=== PATIENT | male | born 1940 | race Caucasian/White ===

== ENCOUNTER 2020-11-16 17:20 | Emergency (ER) | payer OTHER ==
[~2020-11-16] VITALS: Ht 175.3 cm; Wt 90.7 kg
[2020-11-16 18:04] LABS: BASOPHILS ABSOLUTE AUTO 0.02 K/mm3 (0.00-0.23); BASOPHILS PERCENT AUTO 0 % (0-2); EOSINOPHILS ABSOLUTE AUTO 0.03 K/mm3 (0.00-0.68); EOSINOPHILS PERCENT AUTO 0 % (0-6); Hematocrit 43.4 % (37.0-53.0); Hemoglobin 15.3 g/dL (13.5-17.5); IMMATURE GRAN ABSOLUTE AUTO 0.06 K/mm3 (0.00-0.10); IMMATURE GRAN PERCENT AUTO 1 % (0-1); LYMPHOCYTES ABSOLUTE AUTO 0.68 K/mm3 (0.84-5.20); LYMPHOCYTES PERCENT AUTO 6 % (21-46); MONOCYTES PERCENT AUTO 8 % (4-13); Mean Corpuscular HGB 32.3 pg (26.0-34.0); Mean Corpuscular HGB Conc 35.3 g/dL (31.5-36.5); Mean Corpuscular Volume 92 fL (80-100); Mean Platelet Volume 10.4 fL (9.1-12.4); NEUTROPHILS ABSOLUTE AUTO 9.91 K/mm3 (1.96-9.15); NEUTROPHILS PERCENT AUTO 85 % (41-73); Platelet Count 226 K/mm3 (150-400); RDW Coefficient Variation 12.6 % (11.7-14.2); Red Blood Cell Count 4.74 M/mm3 (4.30-5.90)
[2020-11-16 18:16] LABS: Albumin, Blood 2.7 g/dL (3.4-5.0); Albumin/Globulin Ratio 0.7 (0.8-1.8); Bilirubin, Total 1.5 mg/dL (0.1-1.0); Bun/Creatinine Ratio 19.1 (12.0-20.0); Calcium, Blood 8.4 mg/dL (8.5-10.1); Creatinine, Blood 1.31 mg/dL (0.60-1.20); Potassium, Blood 3.4 mmol/L (3.5-5.5); Total Protein, Blood 6.7 g/dL (6.4-8.2)
== END 2020-11-16 20:09 | disposition home or self-care (01) ==
LOC: ER 17:20
PROVIDERS: Emergency Medicine
DX: U07.1 COVID-19 (principal); I10 Essential (primary) hypertension
CPT/HCPCS: 71045; 80053; 85025; 93005; 93010; 99284-25

== ENCOUNTER 2021-12-20 10:51 | Emergency (ER) | payer OTHER ==
[~2021-12-20] VITALS: Ht 175.3 cm; Wt 97.5 kg
[2021-12-20] MEDS ORDERED: VITAMIN D32000 UNI1 PO (11:14)
[2021-12-20] MEDS ORDERED: HYDROCHLOROTHIA25 MG PO (11:14)
[2021-12-20] MEDS ORDERED: ALLO300 PO (11:15)
[2021-12-20] MEDS ORDERED: AMLO10 PO (11:15)
[2021-12-20] MEDS ORDERED: PARO20 PO (11:15)
[2021-12-20] MEDS ORDERED: HYDHCL25 PO (11:16)
[2021-12-20] MEDS ORDERED: ATOR20 PO (11:16)
[2021-12-20] MEDS ORDERED: METF500 PO (11:17)
[2021-12-20] MEDS ORDERED: PROB500 PO (11:17)
[2021-12-20] MEDS ORDERED: ALBU90OI INH (11:17)
[2021-12-20] MEDS ORDERED: ELIQUIS2.5 MG PO (11:18)
[2021-12-20] MEDS ORDERED: OXYACE7.5T PO (12:39)
== END 2021-12-20 13:31 | disposition home or self-care (01) ==
LOC: ER 10:51
DX: S20.211A Contusion of right front wall of thorax, initial encounter (principal); S70.11XA Contusion of right thigh, initial encounter; V86.49XA Person injured while boarding or alighting from other special all-terrain or other off-road motor vehicle, initial encounter; I10 Essential (primary) hypertension; Z79.899 Other long term (current) drug therapy
CPT/HCPCS: 71046; A9270

== ENCOUNTER 2022-03-27 08:19 | Emergency (ER) | payer OTHER ==
[~2022-03-27] VITALS: Ht 175.3 cm; Wt 97.5 kg
[~2022-03-27 08:19] MED LIST: ALBU90OI INH; ALLO300 PO; AMLO10 PO; ATOR20 PO; ELIQUIS2.5 MG PO; HYDHCL25 PO; HYDROCHLOROTHIA25 MG PO; METF500 PO; OXYACE7.5T PO; PARO20 PO; PROB500 PO; VITAMIN D32000 UNI1 PO
[2022-03-27] MEDS ORDERED: Percocet 7.5-31 EACH PO (10:16)
== END 2022-03-27 10:35 | disposition home or self-care (01) ==
LOC: ER 08:19
DX: S22.081A Stable burst fracture of T11-T12 vertebra, initial encounter for closed fracture (principal); S22.32XA Fracture of one rib, left side, initial encounter for closed fracture; I10 Essential (primary) hypertension; W01.0XXA Fall on same level from slipping, tripping and stumbling without subsequent striking against object, initial encounter; Z79.899 Other long term (current) drug therapy; Z79.84 Long term (current) use of oral hypoglycemic drugs; Z79.01 Long term (current) use of anticoagulants; Z96.653 Presence of artificial knee joint, bilateral
CPT/HCPCS: 72128; 99283-25; A9270

== ENCOUNTER 2022-11-30 15:30 | Observation (INO) | payer OTHER ==
[~2022-11-30] VITALS: Ht 175.3 cm; Wt 100.1 kg
[~2022-11-30 15:30] MED LIST changes: +Percocet 7.5-31 EACH PO
[2022-11-30 17:24] LABS: PCO2 Arterial 38.6 mmHg (35-45); PO2 Arterial 67.7 mmHg (80-100); pH Blood Arterial 7.44 (7.35-7.45)
[2022-11-30 17:26] LABS: Albumin, Blood 3.4 g/dL (3.4-5.0); Albumin/Globulin Ratio 1.1 (0.8-1.8); Bilirubin, Total 1.1 mg/dL (0.1-1.0); Bun/Creatinine Ratio 17.9 (12.0-20.0); Calcium, Blood 9.3 mg/dL (8.5-10.1); Creatinine, Blood 1.95 mg/dL (0.60-1.20); Globulin, Blood 3.2 g/dL (2.2-4.0); Potassium, Blood 3.4 mmol/L (3.5-5.5); Total Protein, Blood 6.6 g/dL (6.4-8.2)
[2022-11-30 17:46] LABS: BASOPHILS ABSOLUTE AUTO 0.04 K/mm3 (0.00-0.23); BASOPHILS PERCENT AUTO 0 % (0-2); EOSINOPHILS ABSOLUTE AUTO 0.11 K/mm3 (0.00-0.68); EOSINOPHILS PERCENT AUTO 1 % (0-6); Hematocrit 47.3 % (37.0-53.0); Hemoglobin 16.7 g/dL (13.5-17.5); IMMATURE GRAN ABSOLUTE AUTO 0.05 K/mm3 (0.00-0.10); IMMATURE GRAN PERCENT AUTO 1 % (0-1); LYMPHOCYTES ABSOLUTE AUTO 2.32 K/mm3 (0.84-5.20); LYMPHOCYTES PERCENT AUTO 22 % (21-46); MONOCYTES ABSOLUTE AUTO 1.13 K/mm3 (0.16-1.47); MONOCYTES PERCENT AUTO 11 % (4-13); Mean Corpuscular HGB 32.2 pg (26.0-34.0); Mean Corpuscular Volume 91 fL (80-100); Mean Platelet Volume 10.6 fL (9.1-12.4); NEUTROPHILS ABSOLUTE AUTO 6.84 K/mm3 (1.96-9.15); NEUTROPHILS PERCENT AUTO 65 % (41-73); Platelet Count 226 K/mm3 (150-400); RDW Coefficient Variation 13.1 % (11.7-14.2); RDW Standard Deviation 43.5 fL (35.1-46.3); Red Blood Cell Count 5.18 M/mm3 (4.30-5.90); White Blood Cell Count 10.49 K/mm3 (4.00-11.30)
[2022-11-30 17:47] LABS: Mean Corpuscular HGB Conc 35.3 g/dL (31.5-36.5)
[2022-11-30 21:41] VITALS: BP 136/94
[2022-11-30 23:23] VITALS: BP 129/97
[2022-12-01 03:14] VITALS: BP 112/77
[2022-12-01 04:42] LABS: Albumin, Blood 3.2 g/dL (3.4-5.0); Bilirubin, Total 1.2 mg/dL (0.1-1.0); Bun/Creatinine Ratio 21.6 (12.0-20.0); Calcium, Blood 9.2 mg/dL (8.5-10.1); Creatinine, Blood 1.53 mg/dL (0.60-1.20); Globulin, Blood 3.1 g/dL (2.2-4.0); Magnesium, Blood 1.7 mg/dL (1.6-2.4); Potassium, Blood 3.4 mmol/L (3.5-5.5); Total Protein, Blood 6.3 g/dL (6.4-8.2)
--- NOTE | 2022-12-01 04:52 | NUR ---
ADMIT/SHIFT SUMMARY PT TO ROOM FROM ER. WALKS INTO BED. VSS. AXO. IN CHRONIC AFIB. ON RA. SLIGHT SINGING TO NOSE HAIRS AND OUTER FACIAL HAIR NOTED. NO TANNER NOTED TO MOUTH/ORAL CAVITY. NO WHEEZING NOTED TO UPPER AIRWAY/LUNGS. PT INDEPEDENT IN ROOM, EXPECTS TO BE DC'D IN AM. PT SHOWERED THIS SHIFT POST ADMISSION COMPLETION AND HAS SLEPT SINCE THEN. CALL LIGHT WITHIN REACH.
[2022-12-01 05:01] LABS: BASOPHILS ABSOLUTE AUTO 0.04 K/mm3 (0.00-0.23); BASOPHILS PERCENT AUTO 1 % (0-2); EOSINOPHILS ABSOLUTE AUTO 0.32 K/mm3 (0.00-0.68); EOSINOPHILS PERCENT AUTO 4 % (0-6); Hematocrit 47.5 % (37.0-53.0); Hemoglobin 16.6 g/dL (13.5-17.5); IMMATURE GRAN ABSOLUTE AUTO 0.03 K/mm3 (0.00-0.10); IMMATURE GRAN PERCENT AUTO 0 % (0-1); LYMPHOCYTES ABSOLUTE AUTO 2.28 K/mm3 (0.84-5.20); LYMPHOCYTES PERCENT AUTO 30 % (21-46); MONOCYTES ABSOLUTE AUTO 1.21 K/mm3 (0.16-1.47); MONOCYTES PERCENT AUTO 16 % (4-13); Mean Corpuscular Volume 91 fL (80-100); Mean Platelet Volume 10.4 fL (9.1-12.4); NEUTROPHILS ABSOLUTE AUTO 3.83 K/mm3 (1.96-9.15); NEUTROPHILS PERCENT AUTO 50 % (41-73); Platelet Count 221 K/mm3 (150-400); RDW Coefficient Variation 13.2 % (11.7-14.2); RDW Standard Deviation 43.9 fL (35.1-46.3); White Blood Cell Count 7.71 K/mm3 (4.00-11.30)
[2022-12-01 05:05] LABS: Mean Corpuscular HGB 31.9 pg (26.0-34.0); Mean Corpuscular HGB Conc 34.9 g/dL (31.5-36.5)
[2022-12-01 07:41] VITALS: BP 126/78
--- NOTE | 2022-12-01 11:29 | NUR ---
DISCHARGE SUMMARY ALERT, ORIENTED, INDEPENDENT. DENIES SOB, CP. MILD SINGED FACIAL HAIR, NO TANNER NOTED TO FACE, MOUTH, NARES. REPORTS NO PAIN. VSS. TOLERATING REG DIET AND LIQUIDS. VOIDING WELL. DISCHARGE ORDER GIVEN BY DR SAWYER. DISCHARGE EDUCATION GIVEN ON SIGNS/SYMPTOMS TO RETURN. IV DC'D WNL. LEFT UNIT AT 1100 VIA WHEELCHAIR FOR HOME WITH FAMILY.
== END 2022-12-01 11:13 | disposition home or self-care (01) ==
LOC: ER 15:30 → PCU 15:31
PROVIDERS: Emergency Medicine; ADMIT Student in an Organized Health Care Education/Training Program
DX: T20.10XA Burn of first degree of head, face, and neck, unspecified site, initial encounter (principal); X01.0XXA Exposure to flames in uncontrolled fire, not in building or structure, initial encounter; E11.22 Type 2 diabetes mellitus with diabetic chronic kidney disease; N18.9 Chronic kidney disease, unspecified; I48.91 Unspecified atrial fibrillation; M10.9 Gout, unspecified; F43.10 Post-traumatic stress disorder, unspecified; Z79.84 Long term (current) use of oral hypoglycemic drugs
CPT/HCPCS: 36415; 36600; 71046; 76770; 80053; 82803; 82947; 83735; 85025; 94760; 94762; 99285-25; A9270; G0378; J1815

== ENCOUNTER 2023-10-06 03:22 | Inpatient (IN) | payer OTHER ==
[~2023-10-06] VITALS: Ht 177.8 cm; Wt 98.3 kg
[~2023-10-06 03:22] MED LIST changes: +ALBU2.5V5 NEB; +Atarax10 MG PO; +CEFP200 PO; -ELIQUIS2.5 MG PO; +ELIQUIS5 M2 PO; +FLAGYL500 M1 PO; -HYDHCL25 PO; +LIDO700A20 TOP; -METF500 PO; +SULFAMETHOXAZO1 EAC1 PO; +SYNJARDY XR 121 EAC1 PO; +VISBIOME 112.51 EACH PO; -VITAMIN D32000 UNI1 PO; +Vitamin D1000 UNI1 PO
[2023-10-06 03:42] LABS: BASOPHILS ABSOLUTE AUTO 0.04 K/mm3 (0.00-0.23); BASOPHILS PERCENT AUTO 0 % (0-2); EOSINOPHILS ABSOLUTE AUTO 0.05 K/mm3 (0.00-0.68); EOSINOPHILS PERCENT AUTO 0 % (0-6); Hematocrit 51.8 % (37.0-53.0); Hemoglobin 17.4 g/dL (13.5-17.5); IMMATURE GRAN ABSOLUTE AUTO 0.06 K/mm3 (0.00-0.10); IMMATURE GRAN PERCENT AUTO 0 % (0-1); LYMPHOCYTES ABSOLUTE AUTO 0.36 K/mm3 (0.84-5.20); LYMPHOCYTES PERCENT AUTO 3 % (21-46); MONOCYTES ABSOLUTE AUTO 0.23 K/mm3 (0.16-1.47); MONOCYTES PERCENT AUTO 2 % (4-13); Mean Corpuscular HGB 32.3 pg (26.0-34.0); Mean Corpuscular HGB Conc 33.6 g/dL (31.5-36.5); Mean Corpuscular Volume 96 fL (80-100); Mean Platelet Volume 10.2 fL (9.1-12.4); NEUTROPHILS ABSOLUTE AUTO 13.94 K/mm3 (1.96-9.15); NEUTROPHILS PERCENT AUTO 95 % (41-73); Platelet Count 253 K/mm3 (150-400); RDW Standard Deviation 45.7 fL (35.1-46.3); Red Blood Cell Count 5.38 M/mm3 (4.30-5.90); White Blood Cell Count 14.68 K/mm3 (4.00-11.30)
[2023-10-06 03:55] LABS: Albumin, Blood 2.7 g/dL (3.4-5.0); Albumin/Globulin Ratio 0.8 (0.8-1.8); Bilirubin, Total 1.5 mg/dL (0.1-1.0); Calcium, Blood 9.1 mg/dL (8.5-10.1); Creatinine, Blood 1.67 mg/dL (0.60-1.20); Globulin, Blood 3.3 g/dL (2.2-4.0); Potassium, Blood 3.9 mmol/L (3.5-5.5)
[2023-10-06] MEDS ORDERED: NS 1,000 ML IV SCH ×3 (04:35→06:00)
[2023-10-06 04:37] LABS: Magnesium, Blood 1.5 mg/dL (1.6-2.4)
[2023-10-06 05:18] LABS: Source, Urine Clean Catch
[2023-10-06 05:28] LABS: Appearance, Urine Clear (Clear); Bilirubin, Urine Neg (Neg); Blood, Urine 1+ (Neg); Color, Urine Yellow (P-Yellow); Glucose Qualitative, Urine 4+ (Neg); Ketones, Urine Neg (Neg); Leukocyte Esterase, Urine Neg (Neg); Nitrite, Urine Neg (Neg); Protein, Urine 2+ (Neg); Specific Gravity, Urine 1.015 (1.003-1.022); Urobilinogen, Urine NORM (Normal)
[2023-10-06 05:39] LABS: Calcium Oxalate Crystals Rare /hpf; Red Blood Cells, Urine 0-2 /hpf (0-2); White Blood Cells, Urine 0-2 /hpf (0-5)
[2023-10-06 05:40] LABS: Bacteria Few /hpf; Renal Epithelial Rare /hpf (0-Rare); Squamous Epithelial Cells Rare /hpf (Few)
[2023-10-06] MEDS ORDERED: Cefepime HCl 1,000 MG in NS 100 ML IV ONE (05:40)
[2023-10-06] MEDS ORDERED: Vancomycin HCL 1,500 MG in NS 265 ML IV ONE (05:40)
[2023-10-06] MEDS ORDERED: Mag Sulfate 1 GM/D5% 100ML 100 ML IV ONE (05:50)
[2023-10-06] MEDS ORDERED: Ondansetron HCl 2 MG / ML 2ML Vial IV PRN (06:00)
[2023-10-06] MEDS ORDERED: Acetaminophen 325 MG TABLET PO PRN (06:00)
[2023-10-06] MEDS ORDERED: Loperamide HCl 2 MG Cap PO PRN (06:20)
[2023-10-06 06:25] LABS: C-Reactive Protein, High Sens. 8.25 mg/dL (0.000-3.000)
[2023-10-06] MEDS ORDERED: Albumin (Human) 25gm/100ml 100 ML IV ONE (06:25)
[2023-10-06 06:39] LABS: International Normalized Ratio 1.21; Prothrombin Time Results 12.8 Sec (9.7-11.5)
[2023-10-06 07:57] VITALS: BP 95/67
[2023-10-06 08:15] LABS: Influenza A, PCR NEGATIVE (NEGATIVE); Influenza B, PCR NEGATIVE (NEGATIVE); Resp Syncytial Virus, PCR NEGATIVE (NEGATIVE); SARS-Cov-2 (COVID-19) PCR, MMC NEGATIVE (NEGATIVE)
[2023-10-06] MEDS ORDERED: Azithromycin 500 MG in NS 250 ML IV SCH (09:00)
[2023-10-06] MEDS ORDERED: Enoxaparin 40 MG/0.4 ML SYR SC SCH (09:00)
--- NOTE | 2023-10-06 10:57 | NUR ---
ADMISSION NOTE MR JOSEPH WAS ADMITTED TO MEDICAL FLOOR FROM THE ER AT 0740. HE WAS ABLE TO MOVE HIMSELF OVER FROM THE STRETCHER TO THE BED. HE IS ORIENTATED TO SELF, PLACE, SITUATION, YEAR, NOT MONTH. APPROPRIATE CONVERSATION BUT HE TOLD ME THAT HE CAN BE FORGETFUL. C/O A LOT OF WEAKNESS. HE WAS UNSTEADY TRANSFERING TO THE BEDSIDE COMMODE. BED ALARM ON AND PT EDUCATED ON USE OF CALL SYSTEM AND FALL PREVENTION PRECAUTIONS. NO NAUSEA ON ADMISSION, HE WAS THIRSTY AND ADVANCED TO CLEAR LIQUID DIET (ADAT TO DIABETIC VO DR SAWYER). IVF STARTED AND IV ABX GIVEN. HE LIVES WITH HIS AND SAID HE NEEDS HELP WALKING (USES A CANE AT HOME) AND HIS HELPS HIM WITH HIS MEDS. [place], IN THE PROCESS OF GETTING HEARING AIDS. ON TELEMETTRY, AFIB AT 59. BED LOW, CALL LIGHT IN REACH. AT BEDSIDE.
[2023-10-06 15:36] VITALS: BP 120/58
[2023-10-06] MEDS ORDERED: Cefepime HCl 1,000 MG in NS 100 ML IV SCH (16:00)
[2023-10-06] MEDS ORDERED: Pantoprazole Sodium 20 MG Tab PO SCH (16:30)
--- NOTE | 2023-10-06 16:47 | NUR ---
SHIFT SUMMARY MR JOSEPH HAS DENIES NAUSEA SINCE ADMISSION. IVF 1 LITRE INFUSING. 2 SOFT STOOLS. TRANSFERING TO BEDSIDE COMMODE WITH 1 PERSON ASSISTANCE AND WALKER, UNSTEADY WHEN STANDING. HE TOLERATED CLEAR LIQUID LUNCH SO DIABETIC DIET ORDERED FOR SUPPER. TELE AFIB, NO CALLS FROM CHIEF I DISPATCHER. SUPPORTIVE FAMILY AT BEDSIDE. BED LOW, CALL LIGHT IN REACH, BED ALARM ON.
--- NOTE | 2023-10-06 18:25 | NUR ---
MR JAKE HAS SLIGHT INCREASED WORK OF BREATHING, SOME SOB NOTED WHEN GETTING UP TO THE BEDSIDE COMMODE. AUDITORY WHEEZES HEARD BUT LUNGS SOUNDED CLEAR TO AUSCULTATION. DR SAWYER NOTIFIED. TELEPHONE ORDER FOR BD PROTOCOL AND TO DISCONTINUE IVF. READ BACK DONE AND ORDERS ENTERED INTO [employer]. Juan SNIDER NOTIFIED OD STATUS. IVF DISCONTINUED.
[2023-10-06] MEDS ORDERED: Albuterol HFA200 ACT/6.7 GM INH INH PRN (18:35)
[2023-10-06 19:13] VITALS: BP 81/40
[2023-10-06 19:22] VITALS: BP 99/53
[2023-10-06] MEDS ORDERED: ALLO300 PO (20:20)
[2023-10-06] MEDS ORDERED: PROB500 PO (20:22)
[2023-10-07 04:19] VITALS: BP 120/62
[2023-10-07 05:37] LABS: BASOPHILS ABSOLUTE AUTO 0.05 K/mm3 (0.00-0.23); BASOPHILS PERCENT AUTO 0 % (0-2); EOSINOPHILS ABSOLUTE AUTO 0.13 K/mm3 (0.00-0.68); EOSINOPHILS PERCENT AUTO 1 % (0-6); Hematocrit 45.3 % (37.0-53.0); Hemoglobin 15.4 g/dL (13.5-17.5); IMMATURE GRAN ABSOLUTE AUTO 0.12 K/mm3 (0.00-0.10); IMMATURE GRAN PERCENT AUTO 1 % (0-1); LYMPHOCYTES ABSOLUTE AUTO 0.94 K/mm3 (0.84-5.20); LYMPHOCYTES PERCENT AUTO 6 % (21-46); MONOCYTES ABSOLUTE AUTO 0.91 K/mm3 (0.16-1.47); MONOCYTES PERCENT AUTO 5 % (4-13); Mean Corpuscular HGB 32.6 pg (26.0-34.0); Mean Corpuscular Volume 96 fL (80-100); Mean Platelet Volume 10.6 fL (9.1-12.4); NEUTROPHILS ABSOLUTE AUTO 14.91 K/mm3 (1.96-9.15); NEUTROPHILS PERCENT AUTO 87 % (41-73); Platelet Count 179 K/mm3 (150-400); RDW Coefficient Variation 13.2 % (11.7-14.2); RDW Standard Deviation 47.5 fL (35.1-46.3); Red Blood Cell Count 4.73 M/mm3 (4.30-5.90); White Blood Cell Count 17.06 K/mm3 (4.00-11.30)
--- NOTE | 2023-10-07 05:41 | NUR ---
NO AUTE CHANGES, EMP DECREASED TO 98 BOTH ORAL AND TEMPORAL MEASUREMENTS, PATIENT ALERT AND ORIENTED THIS AM, CLEARLY MAKES NEEDS KNOWN, VERY [place], BM TONIGHT SOFT STOOL, BROWN COLORED. VOIDED 200 ML. LS STARTED WITH WHEEZES, RT TX STARTED, LS DIM IN BASES NOW ONLY, VSS, ONE PERSON STAND BY, UNSTEADY EVEN TO JUST STAND, CALL LIGHT WITH IN REACH, WILL RELAY TO AM RN
[2023-10-07 06:04] LABS: Albumin, Blood 2.6 g/dL (3.4-5.0); Albumin/Globulin Ratio 0.8 (0.8-1.8); Bilirubin, Total 2.1 mg/dL (0.1-1.0); Calcium, Blood 8.5 mg/dL (8.5-10.1); Creatinine, Blood 1.83 mg/dL (0.60-1.20); Globulin, Blood 3.1 g/dL (2.2-4.0); Potassium, Blood 3.8 mmol/L (3.5-5.5); Total Protein, Blood 5.7 g/dL (6.4-8.2)
[2023-10-07 07:29] VITALS: BP 112/65
[2023-10-07 15:17] VITALS: BP 99/74
--- NOTE | 2023-10-07 15:37 | NUR ---
SHIFT SUMMARY MR JOSEPH C/O NEW RIGHT KNEE PAIN AND SOME INCREASE IN RIGHT KNEE SWELLING. HE REPORTS THAT THIS IS FIRST EPISODE OF R KNEE PAIN SINCE SURGERY ~ 20 YRS AGO. HE DENIED WANTING MEDICATIONS FOR KNEE PAIN, REPOSITIONED AND ELEVATED. NO NAUSEA OR VOMITING. ONE LOOSE STOOL SO FAR THIS SHIFT WHICH WAS MIXED WITH URINE SO UNABLE TO SEND TO LAB. MR JOSEPH IS ORIENTATED BUT FORGETFUL AND REPORTS HAVING BEEN TOLD HE HAS "BRAIN FOG" BY HIS PCP. SUPPORTIVE FAMILY AT BEDSIDE. ON TELEMETRY IN AFIB, NO CALLS FROM PERMIT COORDINATOR. UNSTEADY 1 PERSON TRANSFER TO RECLINER AND BEDSIDE COMMODE, USES WALKER. USING INCENTIVE SPIROMETER UP TO 1000CC WITH GOOD TECHNIQUE. DENIES ANY SOB TODAY, VERY LITTLE COUGHING. BED LOW, CALL LIGHT IN REACH, BED ALARM ON.
[2023-10-07] MEDS ORDERED: Metoclopramide HCl 10 MG Tab PO PRN (18:20)
--- NOTE | 2023-10-07 18:21 | NUR ---
MD CALL MR JOSEPH C/O NAUSEA. HIS SAID REGLAN HAS WORKED FOR HIM IN THE PAST. DR SAWYER NOTIFIED. TELEPHONE ORER FOR REGLAN 5MG PO Q6HRS PRN READ BACK AND ENTERED INTO [facility].
[2023-10-07 19:17] VITALS: BP 101/70
[2023-10-07] MEDS ORDERED: GuaiFENesin 600 MG TabCR PO SCH (21:00)
[2023-10-07] MEDS ORDERED: Lactobacil 2-S.Thermo-Bifido 1 1 Cap PO SCH (21:00)
[2023-10-07] MEDS ORDERED: Albuterol HFA200 ACT/6.7 GM INH INH PRN (21:05)
[2023-10-08 03:17] VITALS: BP 122/69
--- NOTE | 2023-10-08 05:41 | NUR ---
SHIFT SUMMARY PT A&OX4 AND ANSWERS QUESTIONS APPROPRIATELY. OCCASIONAL CONFUSION BUT ABLE TO BE REORIENTED. PT WAS CONTINENT TO THE BR THROUGHOUT THE SHIFT. PT MEDICATED PER EMAR. VSS, NO COMPLAINTS OF CP OR SOB. PT SPENT MOST OF SHIFT RESTING IN BED WITH EYES CLOSED AND RESPIRATIONS EVEN AND UNLABORED. NO ACUTE EVENTS AT THIS TIME. APPROPRIATE FALL PRECAUTIONS IN PLACE PER HOSPITAL GUIDELINES. CALL LIGHT IN REACH.
[2023-10-08 05:48] LABS: Hematocrit 43.6 % (37.0-53.0); Mean Corpuscular HGB Conc 34.4 g/dL (31.5-36.5); Mean Corpuscular Volume 96 fL (80-100); Mean Platelet Volume 11.2 fL (9.1-12.4); Platelet Count 173 K/mm3 (150-400); RDW Coefficient Variation 13.1 % (11.7-14.2); RDW Standard Deviation 46.5 fL (35.1-46.3); Red Blood Cell Count 4.55 M/mm3 (4.30-5.90); White Blood Cell Count 9.85 K/mm3 (4.00-11.30)
[2023-10-08 06:19] LABS: Albumin, Blood 2.5 g/dL (3.4-5.0); Anion Gap 12 mmol/L (3-11); Blood Urea Nitrogen 33 mg/dL (8-24); Bun/Creatinine Ratio 21.2 (12.0-20.0); CO2, Blood 21 mmol/L (21-32); Calcium, Blood 8.6 mg/dL (8.5-10.1); Chloride, Blood 112 mmol/L (98-108); Creatinine, Blood 1.56 mg/dL (0.60-1.20); Glomerular Filtration Rate 44 (60-); Glucose, Blood 135 mg/dL (70-99); Phosphorus, Blood 2.7 mg/dL (2.5-4.9); Potassium, Blood 3.7 mmol/L (3.5-5.5); Sodium, Blood 141 mmol/L (136-145)
[2023-10-08 07:45] VITALS: BP 122/82
[2023-10-08] MEDS ORDERED: Azithromycin 250 MG Tab PO SCH (09:00)
[2023-10-08] MEDS ORDERED: Cholecalciferol 1000 Unit Tablet (=25MCG) PO SCH (09:00)
[2023-10-08 09:52] LABS: Campylobacter Sp Not Detected (NOT DETECT)
[2023-10-08 09:53] LABS: Adenovirus F 40/41 Not Detected (NOT DETECT); Astrovirus Not Detected (NOT DETECT); Cryptosporidium Not Detected (NOT DETECT); Cyclospora Cayetanensis Not Detected (NOT DETECT); E. Coli O157 Not Detected (NOT DETECT); Entamoeba Histolytica Not Detected (NOT DETECT); Enteroaggregative E. coli-EAEC Not Detected (NOT DETECT); Enteropathogenic E. coli-EPEC Not Detected (NOT DETECT); Enterotoxigenic E. coli-ETEC Not Detected (NOT DETECT); Giardia Lamblia Not Detected (NOT DETECT); Norovirus GI/GII Not Detected (NOT DETECT); Plesiomonas Shigelloides Not Detected (NOT DETECT); Rotavirus A Not Detected (NOT DETECT); Salmonella Sp Not Detected (NOT DETECT); Sapovirus Not Detected (NOT DETECT); Shiga Toxin-prod E. coli-STEC Not Detected (NOT DETECT); Shigella/Enteroin E. coli-EIEC Not Detected (NOT DETECT); Vibrio Cholerae Not Detected (NOT DETECT); Vibrio Sp Not Detected (NOT DETECT); Yersinia Enterocolitica Not Detected (NOT DETECT)
--- NOTE | 2023-10-08 10:46 | NUR ---
TELE CALLED, 1024. 10 SMALL PAUSES <2 SEC LAST NITE. ONE 2.5 SEC PAUSE NOW. CONTINUES IN AFIB PT ASYMPTOMATIC.
--- NOTE | 2023-10-08 15:51 | NUR ---
PT REQUESTED TO AMBULATE. HE WALKED TO END OF BARBA AND BACK TWICE, THEN OUT HALLWAY TO BEGINNING OF WINDOW AREA. SOME 450 TOTAL FEET. PT STATES FEELS FINE, LIGHTLY WINDED. RETURNED TO CHAIR. RT KNEE DID BUCKLE SEVRAL TIMES. PT ABLE TO RECOVER SELF FULLY, WITHOUT FALL, USING FWW AND GAITE BELT.
[2023-10-08 16:05] VITALS: BP 108/74
--- NOTE | 2023-10-08 18:04 | NUR ---
PT SPOUSE BROUGHT [facility] RECORDS IN REQUESTING WE SCAN INTO OUR MEDICAL RECORDS. PLACED INTO CHART
--- NOTE | 2023-10-08 18:05 | NUR ---
PT QUITE PLEASANT TODAY. NO COMPLAINTS OF PAIN, WE WALKED TO END OF BARBA 2 TIMES, THEN OUT TO WINDOW AND BACK. TOTAL OF APPROX 450 FEET. PT SLIGHTLY WINDED, BUT DOING WELL. A/O X3, H/R IRREG, MURMUR NOTED. PER TELE RUNNING AFIB, EDEMA NOTED BLE +1, LUNGS CLEAR, RESP EASY UNLABORED. QUITE TALKATIVE. BT X4 LAST BM TODAY. LOOSE. VOIDS 1 ASST FOR BALANCE TO BATHROOM. BED INLOW POSITION, CALL LITE IN REACH, CALLS APPROP
[2023-10-08 20:17] VITALS: BP 102/64
[2023-10-09 04:04] VITALS: BP 127/76
[2023-10-09 06:10] LABS: Hematocrit 43.7 % (37.0-53.0); Hemoglobin 14.9 g/dL (13.5-17.5); Mean Corpuscular HGB 32.5 pg (26.0-34.0); Mean Corpuscular HGB Conc 34.1 g/dL (31.5-36.5); Mean Corpuscular Volume 95 fL (80-100); Mean Platelet Volume 11.4 fL (9.1-12.4); Platelet Count 196 K/mm3 (150-400); RDW Coefficient Variation 12.9 % (11.7-14.2); RDW Standard Deviation 45.1 fL (35.1-46.3); Red Blood Cell Count 4.58 M/mm3 (4.30-5.90); White Blood Cell Count 6.54 K/mm3 (4.00-11.30)
--- NOTE | 2023-10-09 06:21 | NUR ---
SHIFT SUMMARY: Pt is admitted for SIRS and is a full code. Is alert and able to make needs known. Has been a SBA for ADLs. denies pain or discomfort when asked. Telly reported afib at 61 with on pause of 2.7 sec. Pt was asleep during the pause.
[2023-10-09 06:48] LABS: Albumin, Blood 2.5 g/dL (3.4-5.0); Albumin/Globulin Ratio 0.7 (0.8-1.8); Bilirubin, Total 1.2 mg/dL (0.1-1.0); Bun/Creatinine Ratio 21.1 (12.0-20.0); Creatinine, Blood 1.33 mg/dL (0.60-1.20); Globulin, Blood 3.4 g/dL (2.2-4.0); Potassium, Blood 4.1 mmol/L (3.5-5.5); Total Protein, Blood 5.9 g/dL (6.4-8.2)
--- NOTE | 2023-10-09 13:01 | NUR ---
Pt. is awake and welcomes my visit. Pt. is known to any [place] advanced clinical specialist form the community. Facilitated a life review and listened with interest and an engaged presence. Pt. displays evidence of being very engaged and aware, though does display some evidence of being [place]. Consider mamy matters of millicent, belief and the local spiritism. Pt. verbalized his spiritual journey and in the prcoess rapport is established. Prayed with Pt. Pt. 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
[2023-10-09] MEDS ORDERED: Acyclovir 400 MG Tab PO SCH ×2 (16:50→21:00)
[2023-10-09 17:05] VITALS: BP 127/77
--- NOTE | 2023-10-09 19:55 | NUR ---
SHIFT SUMMARY PATIENT UP TO CHAIR FOR MEALS, HE IS UP TO BATHROOM WITH 1 PERSON SBA. HE DENIES PAIN, HE HAD SOME WHEEZING THIS AM AND HAD BREATHING TREATMENT FROM RT WITH GOOD RESOLVE. BED IN LOW POSITION, CALL LIGHT IN REACH. BED ALARM ON FOR SAFETY.
[2023-10-09 20:15] VITALS: BP 133/86
[2023-10-09] MEDS ORDERED: Apixaban 5 MG Tab PO SCH (21:00)
[2023-10-10 02:56] VITALS: BP 131/82
--- NOTE | 2023-10-10 03:49 | NUR ---
SHIFT SUMMARY PT. IS A&O X 4, VERY PLEASANT, COOPERATIVE WITH CARE, ABLE TO MAKE HIS NEEDS KNOWN. PT. DENIES PAIN, SOB, OR DISCOMFORT DURING THIS SHIFT. LS UL'S CLEAR TO AUSCULTATION, LL'S DIMINISHED. NO COUGH NOTED T/O THE [employer] PROTECTION SPECIALIST. ABX INFUSED ORDERED. TELLY: A-FIB@64. PT.HAS RESTED VERY LITTLE DURING THIS SHIFT, NOTED RESTLESSNESS, AND TURNING IN BED. PT. DENIED A NEED FOR A SLEEP AIDE. NO ACUTE DISTRESS/EVENTS NOTED/REPORTED DURING THIS SHIFT. BED AT THE LOWEST POSITION, CALL LIGHT IN REACH. WILL PASS ON TO INCOMING SHIFT NURSE.
[2023-10-10 06:32] LABS: BASOPHILS ABSOLUTE AUTO 0.04 K/mm3 (0.00-0.23); BASOPHILS PERCENT AUTO 1 % (0-2); EOSINOPHILS ABSOLUTE AUTO 0.34 K/mm3 (0.00-0.68); EOSINOPHILS PERCENT AUTO 6 % (0-6); Hematocrit 44.8 % (37.0-53.0); Hemoglobin 15.5 g/dL (13.5-17.5); IMMATURE GRAN ABSOLUTE AUTO 0.05 K/mm3 (0.00-0.10); IMMATURE GRAN PERCENT AUTO 1 % (0-1); LYMPHOCYTES ABSOLUTE AUTO 1.34 K/mm3 (0.84-5.20); LYMPHOCYTES PERCENT AUTO 25 % (21-46); MONOCYTES ABSOLUTE AUTO 0.62 K/mm3 (0.16-1.47); MONOCYTES PERCENT AUTO 11 % (4-13); Mean Corpuscular HGB 32.6 pg (26.0-34.0); Mean Corpuscular HGB Conc 34.6 g/dL (31.5-36.5); Mean Corpuscular Volume 94 fL (80-100); NEUTROPHILS ABSOLUTE AUTO 3.09 K/mm3 (1.96-9.15); NEUTROPHILS PERCENT AUTO 56 % (41-73); Platelet Count 214 K/mm3 (150-400); RDW Coefficient Variation 12.6 % (11.7-14.2); Red Blood Cell Count 4.75 M/mm3 (4.30-5.90); White Blood Cell Count 5.48 K/mm3 (4.00-11.30)
[2023-10-10 07:10] LABS: Bun/Creatinine Ratio 22.2 (12.0-20.0); Calcium, Blood 9.5 mg/dL (8.5-10.1); Creatinine, Blood 1.08 mg/dL (0.60-1.20)
[2023-10-10] MEDS ORDERED: Empagliflozin 25 MG TAB PO SCH (09:00)
[2023-10-10] MEDS ORDERED: Lidocaine 4% 1 Patch TOP SCH (09:00)
[2023-10-10] MEDS ORDERED: AmLODIPine Besylate 5 MG Tab PO SCH (09:00)
[2023-10-10] MEDS ORDERED: Allopurinol 300 MG Tab PO SCH (09:00)
[2023-10-10] MEDS ORDERED: Atorvastatin 10 MG Tab PO SCH (09:00)
[2023-10-10 09:48] VITALS: BP 116/81
[2023-10-10 11:54] VITALS: BP 130/84
[2023-10-10] MEDS ORDERED: GUAI600T33 PO (12:43)
[2023-10-10] MEDS ORDERED: ACYC400 PO (12:43)
[2023-10-10] MEDS ORDERED: AMOCLA875 PO (12:43)
[2023-10-10] MEDS ORDERED: BusPIRone HCl 5 MG Tab PO PRN (13:00)
[2023-10-10] MEDS ORDERED: BusPIRone HCl 5 MG Tab PO ONE (13:00)
--- NOTE | 2023-10-10 14:32 | NUR ---
DISCHARGE SUMMARY PATIENT UP TO BATHROOM AD SONIA TODAY. HE DID HAVE 1 EPISODE OF SHARP CHEST PAIN WHICH RESOLVED QUICKLY. DR JAVIER NOTIFIED, EKG DONE AND NO CHANGES NOTED ON EKG. VITALS STABLE. ORDERED BUSPAR FOR POSSIBLE ANXIETY ATTACK. PATIET WITH NO COMPLAINTS UPON DISCHARGE. MEDICATION AND EDUCATION PACKET PRINTED AND SIGNED BY PATIENT. EDUCATION REVIEWED WITH PATIENT AND . ALL QUESTIONS ANSWERED. ADDITIONAL WRITTEN INSRUCTIONS BY PLACEMENT DIRECTOR FOR RECCOMENDATION BY DR JAVIER FOR PULMONARY FUNCTION TEST OUTPATIENT. PATIENT LEFT UNIT AT 1430 VIA TANSPORT CHAIR WITH BHASKAR WHO IS DRIVING PATIENT HOME VIA PRIVATE VEHICLE.
[2023-10-10] MEDS ORDERED: MetFORMIN HCl 500 mg PO SCH (17:00)
== END 2023-10-10 14:33 | disposition home health service (06) | DRG 871 ==
LOC: ER 03:22 → MEDS 03:23 → ENPENDDIS 10-10 12:02 → MEDS 10-10 14:33
PROVIDERS: Internal Medicine; Student in an Organized Health Care Education/Training Program; ADMIT Internal Medicine
DX: A41.9 Sepsis, unspecified organism (principal); J18.9 Pneumonia, unspecified organism; J44.0 Chronic obstructive pulmonary disease with (acute) lower respiratory infection; I48.20 Chronic atrial fibrillation, unspecified; F41.9 Anxiety disorder, unspecified; R74.01 Elevation of levels of liver transaminase levels; I10 Essential (primary) hypertension; F43.10 Post-traumatic stress disorder, unspecified; I49.5 Sick sinus syndrome; J98.4 Other disorders of lung; K52.9 Noninfective gastroenteritis and colitis, unspecified; N32.89 Other specified disorders of bladder; E83.42 Hypomagnesemia; E88.09 Other disorders of plasma-protein metabolism, not elsewhere classified; R53.81 Other malaise; Z79.01 Long term (current) use of anticoagulants; Z86.16 Personal history of COVID-19
CPT/HCPCS: 0241U; 36415; 51701; 71046; 74177; 80048; 80053; 80069; 81001; 83605; 83735; 83880; 84145; 85025; 85027; 85610; 85651; 86141; 87040; 87070; 87205; 87449; 87507; 93005; 93010; 94640; 94664; 94760; 96361-59; 96365-59; 96366; 96367; 96368; 96372; 97116; 97161; 97530; 99285-25; A9270; C9113; G0378; J0456; J0692; J1650; J3370; J3475; J7030; J7050; P9047; Q9967

== ENCOUNTER 2024-10-03 13:21 | Inpatient (IN) | payer OTHER ==
[~2024-10-03] VITALS: Ht 177.8 cm; Wt 107.7 kg
[~2024-10-03 13:21] MED LIST changes: +ACYC400 PO; +AMOCLA875 PO; +GUAI600T33 PO
[2024-10-03] MEDS ORDERED: HYDROmorphone HCl/Pf 1MG SYR IV ONE (14:15)
[2024-10-03 14:51] LABS: BASOPHILS ABSOLUTE AUTO 0.04 K/mm3 (0.00-0.23); BASOPHILS PERCENT AUTO 0 % (0-2); EOSINOPHILS ABSOLUTE AUTO 0.15 K/mm3 (0.00-0.68); EOSINOPHILS PERCENT AUTO 1 % (0-6); Hematocrit 47.2 % (37.0-53.0); Hemoglobin 16.7 g/dL (13.5-17.5); IMMATURE GRAN ABSOLUTE AUTO 0.11 K/mm3 (0.00-0.10); IMMATURE GRAN PERCENT AUTO 1 % (0-1); LYMPHOCYTES PERCENT AUTO 13 % (21-46); MONOCYTES ABSOLUTE AUTO 1.31 K/mm3 (0.16-1.47); MONOCYTES PERCENT AUTO 8 % (4-13); Mean Corpuscular HGB 32.9 pg (26.0-34.0); Mean Corpuscular HGB Conc 35.4 g/dL (31.5-36.5); Mean Corpuscular Volume 93 fL (80-100); Mean Platelet Volume 10.2 fL (9.1-12.4); NEUTROPHILS ABSOLUTE AUTO 12.83 K/mm3 (1.96-9.15); NEUTROPHILS PERCENT AUTO 78 % (41-73); Platelet Count 204 K/mm3 (150-400); RDW Coefficient Variation 12.9 % (11.7-14.2); Red Blood Cell Count 5.08 M/mm3 (4.30-5.90); White Blood Cell Count 16.54 K/mm3 (4.00-11.30)
[2024-10-03 15:19] LABS: Calcium, Blood 8.9 mg/dL (8.5-10.1); Creatinine, Blood 1.16 mg/dL (0.60-1.20); Potassium, Blood 3.8 mmol/L (3.5-5.5)
[2024-10-03] MEDS ORDERED: FentaNYL Citrate 50 MCG/ML 2 ML Injection IV PRN (16:10)
[2024-10-03 16:45] LABS: Anti-Xa UFH, PHA Monitoring 0.88 IU/mL; International Normalized Ratio 1.15; Prothrombin Time Results 12.2 Sec (9.7-11.5)
[2024-10-03] MEDS ORDERED: DOXY100 PO (17:03)
[2024-10-03] MEDS ORDERED: MOME220I INH (17:04)
[2024-10-03] MEDS ORDERED: PARO30 PO (17:05)
[2024-10-03 18:02] VITALS: BP 162/94
[2024-10-03] MEDS ORDERED: Dose Adjust by Pharmacy XX STA (18:12)
--- NOTE | 2024-10-03 18:29 | NUR ---
ADMIT NEW ER ADMIT WITH R HIP FX. SLIGHTLY EXTERNALLY ROTATED. ABLE TO WIGGLE TOES. CAP REFILL <3 SECONDS. REPORTS 10/10 PAIN. IV FENTANYL GIVEN AND REPOSITIONED FOR COMFORT. A+O X4, HARD OF HEARING. NPO AT MIDNIGHT FOR SURGERY TOMORROW. AT BEDSIDE FOR SUPPORT. ORIENTED TO CALL LIGHT AND TREATMENT PLAN. VSS. ORTHO CONSULTED IN ER.
[2024-10-03] MEDS ORDERED: Heparin Sodium,Porcine/0.5 NS 500 ML IV SCH (18:30)
[2024-10-03] MEDS ORDERED: Mometasone Furoate Inhaler 220 mcg 14 ACT INH SCH (18:45)
[2024-10-03] MEDS ORDERED: HyDROXyzine HCl 10 MG Tab PO PRN (18:45)
[2024-10-03] MEDS ORDERED: Albuterol HFA200 ACT/6.7 GM INH INH PRN (19:10)
[2024-10-03 20:01] VITALS: BP 167/87
[2024-10-03] MEDS ORDERED: Docusate Sodium 100 MG Cap PO SCH (21:00)
[2024-10-04] VITALS (8 sets, daily range): BP systolic 130–153; BP diastolic 76–88
[2024-10-04 01:15] LABS: Hematocrit 44.7 % (37.0-53.0); Hemoglobin 15.4 g/dL (13.5-17.5); Mean Corpuscular HGB 31.9 pg (26.0-34.0); Mean Corpuscular HGB Conc 34.5 g/dL (31.5-36.5); Mean Corpuscular Volume 93 fL (80-100); Mean Platelet Volume 10.4 fL (9.1-12.4); Platelet Count 196 K/mm3 (150-400); RDW Standard Deviation 43.9 fL (35.1-46.3); Red Blood Cell Count 4.83 M/mm3 (4.30-5.90); White Blood Cell Count 11.46 K/mm3 (4.00-11.30)
[2024-10-04] MEDS ORDERED: Dose Adjust by Pharmacy XX STA ×2 (02:18→09:52)
[2024-10-04] MEDS ORDERED: Heparin Sodium 5000 Units/ML 1ML MDV IV ONE (02:20)
--- NOTE | 2024-10-04 05:12 | NUR ---
SHIFT SUMMARY NOC PT A/O X 4, [place]. PLEASANT AND COOPERATIVE WITH CARE. VSS. PT HAS BEEN NPO SINCE MIDNIGHT FOR R HIP SURGICAL INTERVENTION TODAY. PAIN BEING MANAGED PER EMAR. HEPARIN INFUSING PER ORDERS. PT ON TELE AFIB IN 70'S. PT CURRENTLY RESTING WITH BED IN LOWEST POSITION, AND CALL LIGHT WITHIN REACH.
[2024-10-04] MEDS ORDERED: AmLODIPine Besylate 5 MG Tab PO SCH (09:00)
[2024-10-04] MEDS ORDERED: PARoxetine HCl 10 MG Tab PO SCH (09:00)
[2024-10-04] MEDS ORDERED: Lidocaine 4% 1 Patch TOP SCH (09:00)
[2024-10-04] MEDS ORDERED: Cholecalciferol 1000 Unit Tablet (=25MCG) PO SCH (09:00)
[2024-10-04] MEDS ORDERED: Allopurinol 300 MG Tab PO SCH (09:00)
[2024-10-04] MEDS ORDERED: Bupivacaine 0.5% HCl 5 MG/ML 30MLVIAL ONE (09:15)
--- NOTE | 2024-10-04 09:19 | NUR ---
PT TO OR VIA BED
--- NOTE | 2024-10-04 11:09 | NUR ---
URINARY CATHETER. 16 FR APONTE CATHETER PLACED URINARY DIVERSION PER ORDER WITHOUT DIFFICULTY USING STERILE TECHNIQUE. PT TOLERATED PROCEDURE WELL.
[2024-10-05] VITALS (20 sets, daily range): BP systolic 104–144; BP diastolic 72–96
[2024-10-05] MEDS ORDERED: NS 1,000 ML IV SCH (04:20)
--- NOTE | 2024-10-05 06:29 | NUR ---
NOC SUMMARY- PT NPO SINCE MN. PT PAIN MANAGED WELL. CHG WIPE DOWN COMPLETED. APONTE DRAING DARK CONCENTRATED URINE. PROVIDER CALLED AND ORDERED IV FLUIDS WHILE PT NPO. CALL LIGHT IN REACH.
[2024-10-05] MEDS ORDERED: Lidocaine HCl 2% 20 ML MDV ONE (07:40)
[2024-10-05] MEDS ORDERED: propofoL 20 ML IV ONE (07:40)
--- NOTE | 2024-10-05 07:45 | NUR ---
PT TO OR VIA BED
[2024-10-05] MEDS ORDERED: Bupivacaine 0.5% W/EPI 1:200000 SDV 30 ML Vial ONE (08:01)
[2024-10-05] MEDS ORDERED: FentaNYL Citrate 50 MCG/ML 2 ML Injection ONE (08:14)
[2024-10-05] MEDS ORDERED: Dexamethasone Sod Phos 10 MG/ML 1ML VIAL ONE (08:19)
[2024-10-05] MEDS ORDERED: CeFAZolin Sodium 1000 mg Vial ONE (08:25)
--- NOTE | 2024-10-05 08:33 | NUR ---
10/05/24 0833 Michelle Travis ANCEF 2 GM IVPB GIVEN BY DR. DOTSON AT [address] JACK VERBAL ORDER
[2024-10-05] MEDS ORDERED: Morphine Sulfate 4 MG/1 ML Injection IV PRN (08:35)
[2024-10-05] MEDS ORDERED: Albuterol 2.5 MG/3 ML VIAL INH PRN (08:35)
[2024-10-05] MEDS ORDERED: Ondansetron HCl 2 MG / ML 2ML Vial ONE (08:36)
[2024-10-05] MEDS ORDERED: Ondansetron HCl 2 MG / ML 2ML Vial IV PRN (08:40)
[2024-10-05] MEDS ORDERED: HYDROmorphone HCl/Pf 1MG SYR IV PRN (08:45)
[2024-10-05] MEDS ORDERED: ePHEDrine Sulfate 50 MG/ML 1ML Injection IV PRN (08:45)
[2024-10-05] MEDS ORDERED: FentaNYL Citrate 50 MCG/ML 2 ML Injection IV PRN (08:45)
[2024-10-05] MEDS ORDERED: Ketorolac Tromethamine 30mg Vial IV PRN (08:50)
[2024-10-05] MEDS ORDERED: Ketorolac Tromethamine 30mg Vial ONE (09:30)
--- NOTE | 2024-10-05 10:01 | NUR ---
PT TO ROOM 218 FROM PACU. VSS. PT TO ROOM AIR ON ARRIVAL FOR SPO2 93. AQUACELL DRESSING TO R HIP CDI. IV INFUSING TKO RIGHT AC. ALERT TO VERBAL STIMULI. POST OP VS STARTED. WILL CONTINUE TO MONITOR
[2024-10-05] MEDS ORDERED: HYDROcodone 5-APAP 325 TAB PO PRN (11:00)
[2024-10-05] MEDS ORDERED: HYDROcodone 5-APAP 325 TAB PO ONE (11:00)
[2024-10-05] MEDS ORDERED: CeFAZolin Sodium 2,000 MG in NS 50 ML IV SCH (16:00)
--- NOTE | 2024-10-06 04:37 | NUR ---
NOC SUMMARY- PT PAIN MANAGED WELL. PT HAS BEEN RESTING WELL THROUGHOUT SHIFT. PT VOIDING AND TOLERATING PO. PT DRESSING C/D/I. PT HAD SEVERAL TELE REPORTS OF RATE BRIEFLY DROPPING INTO THE 30'S. [facility] NURSE REPORTED A 2 SEC PAUSE. PT WAS ASSESSED AND PT DENIES CX PAIN/ PRESSURE OR SOB. CALL LIGHT IN REACH.
[2024-10-06 04:39] VITALS: BP 149/88
[2024-10-06 04:53] LABS: Hematocrit 42.5 % (37.0-53.0); Hemoglobin 14.7 g/dL (13.5-17.5); Mean Corpuscular HGB 31.9 pg (26.0-34.0); Mean Corpuscular HGB Conc 34.6 g/dL (31.5-36.5); Mean Corpuscular Volume 92 fL (80-100); Mean Platelet Volume 10.5 fL (9.1-12.4); Platelet Count 155 K/mm3 (150-400); RDW Coefficient Variation 12.5 % (11.7-14.2); RDW Standard Deviation 42.4 fL (35.1-46.3); Red Blood Cell Count 4.61 M/mm3 (4.30-5.90); White Blood Cell Count 9.94 K/mm3 (4.00-11.30)
[2024-10-06 07:10] VITALS: BP 133/88
[2024-10-06 14:35] VITALS: BP 133/73
--- NOTE | 2024-10-06 17:27 | NUR ---
SUMMARY NO ACUTE CHANGES T/O SHIFT. PT WORKED WITH THERAPY. APONTE CATH WAS DC'D THIS AM. PT ABLE TO VOID THIS AFTERNOON. MEDICATED PER ORDERS FOR PAIN PRN. CALL LIGHT IN REACH.
[2024-10-06 19:51] VITALS: BP 124/95
[2024-10-06] MEDS ORDERED: Apixaban 5 MG Tab PO SCH (21:00)
[2024-10-07] VITALS (7 sets, daily range): BP systolic 122–153; BP diastolic 71–99
--- NOTE | 2024-10-07 04:25 | NUR ---
SHIFT SUMMARY POD2 R HIP NAILING. AQUACEL REMAINS C/D/I. SENSATION AND CIRCULATION REMAINS INTACT. VSS. PT SLEPT ON AND OFF T/O THE NIGHT. PT AMBULATED TO THE BATHROOM MULTIPLE TIMES TO VOID, NO BM NOTED. UNSTEADY GAIT, REQURING 1P ASSIST. TOLLERATING PO ITNAKE W/O N/V. PT REQUIRED ONE NORCO T/O THE NIGHT W/ TOLELRABLE RESULTS. OVERALL, NO ACUTE EVENTS NOTED. PLAN TO CONTINUE CARE WHILE DISCHARGE ARRANGEMENTS ARE COMPLETED. THE PATIENT IS CURRENTLY SLEEPING, IN NO DISTRESS, CALL LIGHT IN REACH.
--- NOTE | 2024-10-07 09:43 | NUR ---
NOTE: NOTIFIED BY TELE THE PT HAD A 3.[address] GIVENS NOTIFIED, ZIO PATCH TO BE APPLIED PRIOR TO PT'S DISCHARGE.
--- NOTE | 2024-10-07 16:47 | NUR ---
SHIFT SUMMARY PT AOX4, 1 ASSIST WITH THE FWW TO THE BR. UP IN THE HALLWAY TO WALK THIS AFTERNOON AND TOLERATED IT WELL. MEDICATED FOR PAIN PER THE EMAR. CALLS APPROPRIATELY. AT THE BS THIS AM. NOTIFIED BY CREDIT CONTROLLER THAT PT'S SUPPLIED W[facility] REPOSITIONS SELF IN BED. SEE OTHER NOTE ABOUT EVENT PER TELE. CALL LIGHT WITHIN REACH, BED LOCKED AND IN THE LOWEST POSITION. WILL REPORT TO ONCOMING NURSE.
[2024-10-08 03:51] VITALS: BP 162/94
--- NOTE | 2024-10-08 05:07 | NUR ---
NURSING EDUCATOR SUMMARY NO ACUTE CHANGES THIS SHIFT. PT IS POD 2 FOR R HIP NAILING. PT HAS WALKED IN ROOM INTO BATHROOM AND TOLERATES IT WELL. PAIN CONTROLLED WITH 1 TAB NORCO PER AUG. PT HAS SLEPT WELL THROUGH THE NIGHT. VSS, WILL CONTINUE TO MONITOR.
[2024-10-08 07:45] VITALS: BP 154/96
[2024-10-08 10:59] VITALS: BP 140/71
--- NOTE | 2024-10-08 12:15 | NUR ---
Pt. is resting but responds when I enter the room. Pt. recognizes this seed cutter from the community. Pt. is pleasant. Facilitaed an update and considered matters of millicent and belief. Pt. displayed evidence of being engaged, aware and motivated. Prayed with the Pt. Pt. verbalized gratitude for e spiritual care visit.
[2024-10-08 14:36] VITALS: BP 140/89
--- NOTE | 2024-10-08 14:52 | NUR ---
ZIO PATCH PLACED BY CARDIOLOGY. DC INSTRUCT REVIEWED WITH PT. HANDWRITTEN RX OXYCODONE DISPENSED. STATED UNDERSTANDING. PRINTED INSTRUCT DISPENSED. AWAITING TRANSPORT AFTER 5 PM FOR DC.
[2024-10-09] MEDS ORDERED: PARO30 PO (23:15)
[2024-10-09] MEDS ORDERED: OXYC10TA19 PO (23:16)
[2024-10-09] MEDS ORDERED: DOCU100 PO (23:17)
== END 2024-10-08 17:01 | disposition home health service (06) | DRG 481 ==
LOC: ER 13:21 → SURS 16:05
PROVIDERS: Orthopaedic Surgery; Student in an Organized Health Care Education/Training Program; ADMIT Internal Medicine
PROC: 0QH634Z Insertion of Internal Fixation Device into Right Upper Femur, Percutaneous Approach (ICD-10-PCS; principal; 2024-10-05 08:00)
DX: S72.011A Unspecified intracapsular fracture of right femur, initial encounter for closed fracture (principal); I48.20 Chronic atrial fibrillation, unspecified; W01.0XXA Fall on same level from slipping, tripping and stumbling without subsequent striking against object, initial encounter; Y92.69 Other specified industrial and construction area as the place of occurrence of the external cause; I49.5 Sick sinus syndrome; F41.9 Anxiety disorder, unspecified; F43.10 Post-traumatic stress disorder, unspecified; J44.89 Other specified chronic obstructive pulmonary disease; E11.9 Type 2 diabetes mellitus without complications; I10 Essential (primary) hypertension; M10.9 Gout, unspecified; Z96.653 Presence of artificial knee joint, bilateral; Z79.84 Long term (current) use of oral hypoglycemic drugs; Z79.01 Long term (current) use of anticoagulants; Z86.16 Personal history of COVID-19; Z88.0 Allergy status to penicillin; Z88.8 Allergy status to other drugs, medicaments and biological substances; Z88.2 Allergy status to sulfonamides; Z79.51 Long term (current) use of inhaled steroids
CPT/HCPCS: 36415; 80048; 82947; 85025; 85027; 85520; 85610; 85730; 86850; 86900; 86901; 93005; 93010; 93246; 94640; 94664; 94760; 96374; 97110; 97116; 97161; 97165; 97530; 97535; 99285-25; A9270; C1713; C1769; J0690; J1100; J1171; J1644; J1885; J2405; J2704; J3010; J7030

== ENCOUNTER 2024-10-09 14:17 | Observation (INO) | payer OTHER ==
[~2024-10-09] VITALS: Ht 172.7 cm; Wt 103.1 kg
[~2024-10-09 14:17] MED LIST changes: +DOXY100 PO; +MOME220I INH; +PARO30 PO
[2024-10-09 14:40] LABS: BASOPHILS ABSOLUTE AUTO 0.04 K/mm3 (0.00-0.23); BASOPHILS PERCENT AUTO 0 % (0-2); EOSINOPHILS ABSOLUTE AUTO 0.05 K/mm3 (0.00-0.68); EOSINOPHILS PERCENT AUTO 0 % (0-6); Hematocrit 46.6 % (37.0-53.0); Hemoglobin 15.9 g/dL (13.5-17.5); IMMATURE GRAN PERCENT AUTO 1 % (0-1); LYMPHOCYTES ABSOLUTE AUTO 1.52 K/mm3 (0.84-5.20); LYMPHOCYTES PERCENT AUTO 10 % (21-46); MONOCYTES ABSOLUTE AUTO 1.94 K/mm3 (0.16-1.47); MONOCYTES PERCENT AUTO 13 % (4-13); Mean Corpuscular HGB 32.8 pg (26.0-34.0); Mean Corpuscular HGB Conc 34.1 g/dL (31.5-36.5); Mean Corpuscular Volume 96 fL (80-100); Mean Platelet Volume 10.4 fL (9.1-12.4); NEUTROPHILS ABSOLUTE AUTO 11.11 K/mm3 (1.96-9.15); NEUTROPHILS PERCENT AUTO 75 % (41-73); Platelet Count 225 K/mm3 (150-400); RDW Coefficient Variation 12.9 % (11.7-14.2); RDW Standard Deviation 45.5 fL (35.1-46.3); Red Blood Cell Count 4.85 M/mm3 (4.30-5.90); White Blood Cell Count 14.76 K/mm3 (4.00-11.30)
[2024-10-09 15:07] LABS: Albumin/Globulin Ratio 0.8 (0.8-1.8); Bilirubin, Total 2.2 mg/dL (0.1-1.0); Bun/Creatinine Ratio 24.2 (12.0-20.0); Calcium, Blood 8.8 mg/dL (8.5-10.1); Creatinine, Blood 1.2 mg/dL (0.60-1.20); Globulin, Blood 3.8 g/dL (2.2-4.0); Potassium, Blood 4.3 mmol/L (3.5-5.5); Total Protein, Blood 6.8 g/dL (6.4-8.2)
--- NOTE | 2024-10-09 15:56 | NUR ---
Pt. is awake in ED room when he welcomes my visit. SPouse is at bedside and is not happy. Pt. is a re-admit after one day. Pt. verbalizes that he is waiting clarification of his diagnosis, and the spouse verbalized that she didn't the Pt. was ready to discharge home yesterday. Listen with empathy and a calming presence. As this lime boiler was normalizeing the Pt. experience the Pt. verbalized an urgent need to urinate. This lime boiler communicated to the nursing staff and excused himself. Pt. verbalized gratitude for the spiritual care visit. Will remain available to the Pt. and family.
[2024-10-09 17:22] LABS: Source, Urine Voided
[2024-10-09 17:30] LABS: Appearance, Urine Hazy (Clear); Bilirubin, Urine Neg (Neg); Blood, Urine 5+ (Neg); Color, Urine Yellow (P-Yellow); Glucose Qualitative, Urine Neg (Neg); Ketones, Urine Neg (Neg); Leukocyte Esterase, Urine Neg (Neg); Nitrite, Urine Neg (Neg); Protein, Urine 2+ (Neg); Specific Gravity, Urine 1.015 (1.003-1.022); Urobilinogen, Urine NORM (Normal)
[2024-10-09 17:47] LABS: Bacteria Few /hpf; Red Blood Cells, Urine 50-100 /hpf (0-2); Squamous Epithelial Cells Rare /hpf (Few); White Blood Cells, Urine 0-2 /hpf (0-5)
[2024-10-09 19:46] LABS: Adenovirus Not Detected (NOT DETECT); Bordetella pertussis Not Detected (NOT DETECT); Chlamydophila pneumoniae Not Detected (NOT DETECT); Coronavirus 229E Not Detected (NOT DETECT); Coronavirus HKU1 Not Detected (NOT DETECT); Coronavirus NL63 Not Detected (NOT DETECT); Coronavirus OC43 Not Detected (NOT DETECT); Human Metapneumovirus Not Detected (NOT DETECT); Human Rhinovirus/Enterovirus Not Detected (NOT DETECT); Influenza A/2009-H1 Not Detected (NOT DETECT); Influenza A/H1 Not Detected (NOT DETECT); Influenza A/H3 Not Detected (NOT DETECT); Influenza B Not Detected (NOT DETECT); Mycoplasma pneumoniae Not Detected (NOT DETECT); Parainfluenza Virus 1 Not Detected (NOT DETECT); Parainfluenza Virus 2 Not Detected (NOT DETECT); Parainfluenza Virus 3 Not Detected (NOT DETECT); Parainfluenza Virus 4 Not Detected (NOT DETECT); Respiratory Syncytial Virus Not Detected (NOT DETECT); SARS-Cov-2 (COVID-19), BioFire Not Detected (NOT DETECT)
[2024-10-09] MEDS ORDERED: CefTRIAXone Sodium 1,000 MG in NS 50 ML IV ONE (21:15)
[2024-10-09] MEDS ORDERED: Albuterol 2.5 MG/3 ML VIAL INH PRN (22:55)
[2024-10-09] MEDS ORDERED: OxyCODONE HCL 10 MG TABCR PO PRN ×2 (22:55→23:00)
[2024-10-09] MEDS ORDERED: Ipratropium/Albuterol SulF 2.5-0.5MG/3 ML Amp INH SCH (22:55)
[2024-10-09] MEDS ORDERED: Apixaban 5 MG Tab PO SCH (23:00)
[2024-10-09] MEDS ORDERED: Docusate Sodium 100 MG Cap PO SCH (23:00)
[2024-10-09] MEDS ORDERED: AmLODIPine Besylate 5 MG Tab PO SCH (23:00)
[2024-10-09] MEDS ORDERED: Acetaminophen 325 MG TABLET PO PRN (23:00)
[2024-10-09] MEDS ORDERED: PARO30 PO (23:15)
[2024-10-09] MEDS ORDERED: OXYC5 PO (23:16)
[2024-10-09] MEDS ORDERED: DOCU100 PO (23:17)
[2024-10-09] MEDS ORDERED: Mometasone Furoate Inhaler 220 mcg 14 ACT INH SCH (23:25)
[2024-10-09] MEDS ORDERED: HyDROXyzine HCl 10 MG Tab PO PRN (23:25)
[2024-10-09 23:53] VITALS: BP 133/87
[2024-10-10] MEDS ORDERED: OxyCODONE HCL 5 MG TAB PO PRN (00:20)
[2024-10-10 03:47] VITALS: BP 108/71
[2024-10-10 05:48] LABS: BASOPHILS ABSOLUTE AUTO 0.04 K/mm3 (0.00-0.23); BASOPHILS PERCENT AUTO 0 % (0-2); EOSINOPHILS ABSOLUTE AUTO 0.07 K/mm3 (0.00-0.68); EOSINOPHILS PERCENT AUTO 1 % (0-6); Hematocrit 40.9 % (37.0-53.0); IMMATURE GRAN ABSOLUTE AUTO 0.08 K/mm3 (0.00-0.10); IMMATURE GRAN PERCENT AUTO 1 % (0-1); LYMPHOCYTES ABSOLUTE AUTO 1.79 K/mm3 (0.84-5.20); LYMPHOCYTES PERCENT AUTO 17 % (21-46); MONOCYTES ABSOLUTE AUTO 1.79 K/mm3 (0.16-1.47); MONOCYTES PERCENT AUTO 17 % (4-13); Mean Corpuscular HGB Conc 34.2 g/dL (31.5-36.5); Mean Corpuscular Volume 94 fL (80-100); Mean Platelet Volume 10.8 fL (9.1-12.4); NEUTROPHILS ABSOLUTE AUTO 6.82 K/mm3 (1.96-9.15); NEUTROPHILS PERCENT AUTO 64 % (41-73); Platelet Count 174 K/mm3 (150-400); RDW Coefficient Variation 12.8 % (11.7-14.2); RDW Standard Deviation 43.9 fL (35.1-46.3); Red Blood Cell Count 4.37 M/mm3 (4.30-5.90); White Blood Cell Count 10.59 K/mm3 (4.00-11.30)
--- NOTE | 2024-10-10 06:04 | NUR ---
SHIFT SUMMARY PT ADMITTED TO [facility] AT 2345. PT ALERT AND ORIENTED X3- UNSURE OF DATE- BUT FORGETFUL AT TIMES. PT ABLE TO TRANSFER FROM RDENBO TO BED WITH GB AND 1 MODERATE ASSIST. STAGE 2 PRESSURE INJURY NOTED TO LEFT SIDE OF COCCYX. DR NOTIFIED, PICTURE TAKEN AND MEPELEX APPLIED. PT REPOSITIONED THROUGH THE NIGHT. PT BLADDER SCANNED FOR 300ML AND VOIDED APPROX 200ML AFTERWARDS. PT MEDICATED FOR RIGHT HIP PAIN WITH TYLENOL PER EMAR. PT SLEPT INTERMITTENTLY DURING THE NIGHT. BED ALARM ON, BED IN LOWEST POSITION, CALL LIGHT WITHIN REACH, SIDERAILS UP X2.
[2024-10-10 06:22] LABS: Albumin, Blood 2.5 g/dL (3.4-5.0); Albumin/Globulin Ratio 0.7 (0.8-1.8); Bilirubin, Total 1.9 mg/dL (0.1-1.0); Bun/Creatinine Ratio 21.7 (12.0-20.0); Calcium, Blood 8.4 mg/dL (8.5-10.1); Creatinine, Blood 1.2 mg/dL (0.60-1.20); Globulin, Blood 3.4 g/dL (2.2-4.0); Potassium, Blood 3.7 mmol/L (3.5-5.5); Total Protein, Blood 5.9 g/dL (6.4-8.2)
[2024-10-10] MEDS ORDERED: Insulin Regular 100 UNIT/ML 10ML Vial SC SCH (07:30)
--- NOTE | 2024-10-10 07:40 | NUR ---
ASSUMPTION OF CARE: ASSUMED CARE OF PATIENT. WOKEN FOR SHIFT CHANGE REPORT. LYING SUPINE IN BED. BREATHING EVEN AND UNLABORED. ROOM AIR. TELE A-FLUTTER @ 70bpm. BED IN LOWEST POSITION. CALL LIGHT WITHIN REACH. NO ACUTE NEEDS.
[2024-10-10 07:48] VITALS: BP 113/73
[2024-10-10] MEDS ORDERED: Allopurinol 300 MG Tab PO SCH (09:00)
[2024-10-10] MEDS ORDERED: Cholecalciferol 1000 Unit Tablet (=25MCG) PO SCH (09:00)
[2024-10-10] MEDS ORDERED: PARoxetine HCl 20 MG Tab PO SCH (09:00)
[2024-10-10] MEDS ORDERED: Enoxaparin 30 MG/0.3 ML SYR SC SCH (09:00)
[2024-10-10 11:34] VITALS: BP 114/77
[2024-10-10] MEDS ORDERED: Albuterol HFA200 ACT/6.7 GM INH INH PRN (12:05)
--- NOTE | 2024-10-10 12:39 | NUR ---
PATIENT'S REQUESTING TO HAVE MEETING WITH PATIENT ADVOCATE, ESCALATOR SERVICE MECHANIC AND THERAPY PATRON ATTENDANT SHE DOES NOT FEEL SHE IS SAFE BRINGING HER HOME SHE IS UNABLE TO TRANSFER OR AMBULATE THE PATIENT. GUILLERMO ACEVEDO WITH PT AND QU[place]ON WITH CARE MANAGEMENT HAVE ALL DISCUSSED THIS WITH PATIENT'S . LEFT VOICEMAIL WITH PATIENT ADVOCATE REQUESTING CALL BACK SO SHE CAN COME SPEAK WITH PATIENT AND PATIENT'S ABOUT OPTIONS AND RESOURCES.
--- NOTE | 2024-10-10 13:52 | NUR ---
PATIENT'S APPROACHED THIS RN AND STATED SHE WANTED IT DOCUMENTED IN THE PATIENT'S CHART THAT SHE IS TAKING HIM HOME "UNDER DURESS" AND BELIEVES IT TO BE AN "UNSAFE ENVIRONMENT" AND "DOES NOT WANT HIM TO BE DISCHARGED". SHE STATES SHE WAS TOLD BY HER DIRECTOR OF CONSTRUCTION THAT THIS NEEDED TO BE DOCUMENTED IN HIS CHART. LET HER KNOW I WOULD PLACE NOTE IN CHART.
--- NOTE | 2024-10-10 18:50 | NUR ---
DISCHARGE SUMMARY: A&Ox4. PLEASANT AND COOPERATIVE WITH CARE. CALLS APPROPRIATELY AND IS ABLE TO ADVOCATE NEEDS EFFECTIVELY. AMBULATES 1PA c FWW. CONTINENT OF BOWEL AND BLADDER; LBM TODAY. MEDS WHOLE c FLUIDS. TELE DC'd. NO C/O PAIN OR DISCOMFORT THIS SHIFT. MEDICATIONS FAXED TO [facility]. INSTRUCTED TO FOLLOW-UP WITH PCP ORDERED. HOME HEALTH CONTINUATION ORDERED. VERY UPSET ABOUT DISCHARGE AND SHE FEELS THIS IS AN UNSAFE DISCHARGE AND HE SHOULD BE STAYING OR GOING TO SNF. PT DID NO RECOMMEND SNF AND HE WAS DECLINED BY [place] [facility]. LEFT FLOOR WITH ALL BELONGINGS AND DISCHARGE PACKET, ESCORTED BY [facility] TRANSP[facility].
== END 2024-10-10 14:50 | disposition home or self-care (01) ==
LOC: ER 14:17 → MEDS 14:18
PROVIDERS: Emergency Medicine; ADMIT Student in an Organized Health Care Education/Training Program
DX: G93.41 Metabolic encephalopathy (principal); G89.18 Other acute postprocedural pain; J44.9 Chronic obstructive pulmonary disease, unspecified; L89.152 Pressure ulcer of sacral region, stage 2; R60.0 Localized edema; I48.91 Unspecified atrial fibrillation; I10 Essential (primary) hypertension; E11.9 Type 2 diabetes mellitus without complications; M10.9 Gout, unspecified; F41.9 Anxiety disorder, unspecified; Z88.1 Allergy status to other antibiotic agents; Z88.0 Allergy status to penicillin; Z88.2 Allergy status to sulfonamides; Z79.899 Other long term (current) drug therapy
CPT/HCPCS: 0202U; 36415; 71045; 73701; 80053; 81001; 82947; 83605; 84484; 85025; 87040; 93005; 93010; 94640; 94664; 94760; 96365; 97116; 97162; 97530; 99285-25; A9270; G0378; J0696; J1815; Q9967